=== PATIENT | female | born 1940 | race Two or more races ===

== ENCOUNTER 2018-09-13 23:35 | Emergency (ER) | payer OTHER ==
[~2018-09-13] VITALS: Ht 160 cm; Wt 61.2 kg
[2018-09-14] MEDS ORDERED: ALLEGRA ALLERG180 MG PO (05:24)
[2018-09-14] MEDS ORDERED: PEPCID40 MG PO (05:24)
[2018-09-14] MEDS ORDERED: MEDROL8 MG PO (05:24)
== END 2018-09-14 05:32 | disposition home or self-care (01) ==
LOC: ER 23:35
DX: R21 Rash and other nonspecific skin eruption (principal)